=== PATIENT | male | born 1975 | race Caucasian/White ===

== ENCOUNTER → 2018-04-12 10:43 | Outpatient (CLI) | payer MEDICAID, SELFPAY ==
[2018-04-12 11:30] VITALS: PULSE 63; PULSE 70
== END ==
PROVIDERS: Family Provider Family Medicine; PCP Family Medicine; Visit Provider Family Medicine
DX: J30.1 Allergic rhinitis due to pollen (principal)
CPT/HCPCS: 94060; 94640; 94726; 94729

== ENCOUNTER → 2019-04-05 13:55 | Outpatient (CLI) | payer MEDICAID, SELFPAY | PROVIDERS: PCP Family Medicine; Visit Provider Internal Medicine Cardiovascular Disease | DX: I10 Essential (primary) hypertension (principal); R00.2 Palpitations; R06.02 Shortness of breath; R40.0 Somnolence; R53.83 Other fatigue | CPT/HCPCS: 95806 ==

== ENCOUNTER → 2019-07-23 16:00 | Outpatient (CLI) | payer MEDICAID, SELFPAY ==
[2019-07-23 17:35] LABS: Ferritin 41 ng/mL (8-388)
== END ==
PROVIDERS: Visit Provider Nurse Practitioner Family
DX: E83.10 Disorder of iron metabolism, unspecified (principal); G25.81 Restless legs syndrome; G47.33 Obstructive sleep apnea (adult) (pediatric)
CPT/HCPCS: 36415; 82728

== ENCOUNTER → 2019-07-30 12:02 | Outpatient (CLI) | payer MEDICAID, SELFPAY ==
--- NOTE | 2019-07-30 12:10 | XR_ITS ---
PROCEDURE: XR MULTIPLE SPINE 6+V CLINICAL INDICATION: BACK PAIN COMPARISON: No exams were available for comparison FINDINGS: Bone density, alignment and vertebral body heights are normal. There is mild loss of disc space height in the thoracic spine at T11-12. Posterior elements are intact and there are no paraspinal soft tissue densities. Lumbar spine shows normal bone density, alignment and vertebral body heights. Disc space heights are normal and there are small left lateral spur at L3-4. Posterior elements appear to be intact. IMPRESSION: No acute process. T11-T12 mild degenerative disc disease. L3-4 small left lateral spur. Dictated by: Dawson Iqbal 07/30/2019 12:33 Electronically signed by Dawson Iqbal in [place] 07/30/2019 12:33
== END ==
PROVIDERS: PCP Nurse Practitioner Family; Visit Provider Nurse Practitioner Family
DX: M54.5 Low back pain (principal); M54.6 Pain in thoracic spine
CPT/HCPCS: 72084

== ENCOUNTER → 2019-09-20 14:05 | Outpatient (CLI) | payer OTHER, SELFPAY ==
[2019-09-20 14:44] LABS: Basophils # 0.1 K/mm3 (0-0.2); Basophils % 0.9 % (0.1-2.0); Eosinophils # 0.6 K/mm3 (0.0-0.4); Eosinophils % 5.5 % (0.1-12.0); Hematocrit 44.7 % (42.0-52.0); Hemoglobin 14.8 g/dL (14.1-18.0); Lymphocytes # 3.4 K/mm3 (0.7-4.5); Lymphocytes % 32.3 % (10-50); Mean Corpuscular HGB Conc 33.1 g/dL (31.8-35.4); Mean Corpuscular Hemoglobin 30.7 pg (27.0-31.2); Mean Corpuscular Volume 92.6 fl (80-94); Monocytes # 0.9 K/mm3 (0.1-1.0); Monocytes % 8.4 % (1.7-9.3); Neutrophils # 5.5 K/mm3 (1.8-7.8); Neutrophils % 52.8 % (37.0-80.0); Platelet Count 344 K/mm3 (142-424); Red Blood Count 4.83 M/mm3 (4.60-6.20); Red Cell Distribution Width 14.2 % (11.5-17.5); White Blood Count 10.4 K/mm3 (4.8-10.8)
[2019-09-20 15:44] LABS: Alanine Aminotransferase 40 U/L (12-78); Albumin Level 3.9 gm/dL (3.4-5.0); Albumin/Globulin Ratio 1.1 (1.1-1.8); Alkaline Phosphatase 133 U/L (46-116); Anion Gap 8.5 mEq/L (5-15); Aspartate Amino Transferase 24 U/L (15-37); Bilirubin,Total 0.1 mg/dL (0.2-1.0); Blood Urea Nitrogen 3 mg/dL (7-18); Calcium 8.8 mg/dL (8.5-10.1); Carbon Dioxide 30 mmol/L (21.0-32.0); Chloride 103 mmol/L (98-107); Creatinine,Serum 0.83 mg/dL (0.70-1.30); Estimated Glomerular Filt Rate 101 ml/min (>60); GFR (African American) 122 ML/MIN (>60); Globulin 3.4 gm/dl (1.3-3.2); Glucose 70 mg/dL (74-106); Potassium 3.5 mmoL/L (3.5-5.1); Sodium 138 mmol/L (136-145); Total Protein,Serum 7.3 gm/dL (6.4-8.2)
[2019-09-24 06:36] LABS: Vitamin B12 634 pg/mL (232-1245); Vitamin D 25 Hydroxy 26.1 ng/mL (30.0-100.0)
[2019-09-27 21:13] LABS: Testosterone, Total, LC/MS 632.2 ng/dL (264.0-916.0); Testosterone,Free 11.6 pg/mL (6.8-21.5)
== END ==
PROVIDERS: Visit Provider Nurse Practitioner Family
DX: G47.33 Obstructive sleep apnea (adult) (pediatric) (principal); G47.00 Insomnia, unspecified; G47.19 Other hypersomnia; R53.83 Other fatigue; E55.9 Vitamin D deficiency, unspecified
CPT/HCPCS: 36415; 80053; 82607; 82652; 84402; 84403; 84443; 85025

== ENCOUNTER → 2019-11-09 07:46 | Outpatient (CLI) | payer OTHER, SELFPAY ==
--- NOTE | 2019-11-09 07:46 | CA_ITS ---
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 The EKG portion of the exercise stress echo is negative for ischemia, patient has adequate exercise capacity achieved 7 mets of workload on treadmill, the blood pressure response to exercise was adequate, test was stopped due to shortness of breath. 2. With exercise there is increase in contractility of all the segments of the myocardium with hyperdynamic left ventricular systolic response, no obvious regional wall motion abnormality with exercise to suggest underlying ischemic heart disease. 3. Normal exercise stress echo.
== END ==
PROVIDERS: PCP Family Medicine; Visit Provider Internal Medicine Cardiovascular Disease
DX: R06.02 Shortness of breath (principal); R07.9 Chest pain, unspecified; I10 Essential (primary) hypertension; G47.33 Obstructive sleep apnea (adult) (pediatric); Z99.89 Dependence on other enabling machines and devices
CPT/HCPCS: 93017; 93350

== ENCOUNTER 2020-02-20 10:50 | Emergency (ER) | payer OTHER, SELFPAY ==
[2020-02-20 10:52] VITALS: BP 144/82; PULSE 81; RESP 20; TEMP 36.8; O2SAT 98; BMI 25.8
--- NOTE | 2020-02-20 11:00 | XR_ITS ---
PROCEDURE: XR WRIST RT MIN 3V CLINICAL INDICATION: INJURY Posttraumatic pain COMPARISON: No exams were available for comparison FINDINGS: No fracture or dislocation. No lytic or blastic change. There is normal mineralization. The joint spaces are well-preserved. No significant degenerative/arthritic changes. No erosive changes evident. Other findings:None. IMPRESSION: No acute findings. Dictated by: eFlice Austin MD 02/20/2020 11:33 Electronically signed by Felice Austin MD in [facility] 02/20/2020 11:33
--- NOTE | 2020-02-20 11:38 | HMH.EDEXTP ---
ED Disposition Clinical Impression: Sprain and strain of wrist Disposition: Home, Self-Care Condition on Discharge: Good Instructions: Sprain Additional Instructions: Please follow-up with primary care physician if condition worsens. Referrals: Alfredo Bradshaw MD [Primary Care Provider] - - Critical Care Critical Care Time: No Attestation: On 02/20/20, the high probability of a clinically significant, sudden or life threatening deterioration of the following system(s) required my full and direct attention, intervention and personal management. The time I documented below is in addition to time spent performing reported procedures but includes the following listed in this critical care notation. Medical Decision Making - Medical Records Medical records reviewed: Yes: I reviewed the patient's medical records. - Richard Inquiry Pt receiving controlled substance: No Vital Signs: 02/20/20 10:52 Temperature 98.2 F Temperature Source Oral Pulse Rate [Right] 81 Respiratory Rate 20 Blood Pressure [Right Arm] 144/82 H Blood Pressure Mean [Right Arm] 102 02 Sat by Pulse Oximetry 98 - Lab Data Lab results reviewed: Yes: I reviewed the patient's lab results. - Radiology Data #1 Image(s): Wrist Preliminary Findings: Normal/NAD (This is a normal wrist x-ray), Abnormal Extremity Problem HPI - General Chief complaint: Extremity Injury, Upper Stated complaint: ao fell and hit R hand wrist Time Seen by Provider: 02/20/20 11:11 Mode of Arrival: Ambulatory Source of Information: Patient Limitations: No Limitations Description of Symptoms (Recalled from ER Triage Doc. by RN): RIGHT WRIST INJURY THAT HAPPENED LAST NIGHT. - History of Present Illness HPI Narrative: 44-year-old gentleman presents the ED after a fall. He fell yesterday was chopping some wood and landed on outstretched hand is complaining of pain in the right wrist right around the distal radius. Patient states the pain is 3 out of 10. Describes pain is sharp. He denies any exacerbating or alleviating factors. Patient denies any other trauma. - Related Data Home Medications Medication Instructions Recorded Confirmed albuterol sulfate 90 mcg/actuation 1 puff INHALATION Q6H PRN 03/15/19 11/09/19 aerosol inhaler clonazepam 0.5 mg tablet 0.5 mg PO BID PRN 03/15/19 11/09/19 fluticasone furoate 100 1 inh INHALATION DAILY 03/15/19 11/09/19 mcg-vilanterol 25 mcg/dose inhalation powder levocetirizine 5 mg tablet 5 mg PO DAILY 03/15/19 11/09/19 montelukast 10 mg tablet 10 mg PO QPM 03/15/19 11/09/19 paroxetine HCl 40 mg tablet 40 mg PO DAILY 03/15/19 11/09/19 quetiapine 25 mg tablet 25 mg PO DAILY tab 03/15/19 11/09/19 Previous Rx's Medication Instructions Recorded pramipexole 0.25 mg tablet 0.25 mg PO DAILY 90 Days #90 tab 07/23/19 metoprolol succinate 25 mg 25 mg PO AM #30 tab 11/09/19 tablet,extended release 24 hr metoprolol succinate 50 mg 50 mg PO QHS #30 tab 11/09/19 tablet,extended release 24 hr Allergies Allergy/AdvReac Type Severity Reaction Status Date / Time No Known Allergies Allergy Verified 11/09/19 11:45 [facility] History - Hepatitis A Screen Drug use history?: No High risk sexual behaviors?: No History of sexually transmitted infection?: No Currently employed?: No Childcare worker?: No Do you have indoor plumbing?: Yes Do you have electricity?: Yes Attestation statement:: This patient has been screened for Hepatitis A risk factors. I have reviewed the patient's past medical history: Yes Medical History: Reports:: Anxiety, Arrhythmia, Depression, Hypertension, Palpitations Other Medical History: Reports: Sinus Problems, Other Comment: GAL Other Surgeries: Yes: No Previous Surgery - Social History Smoking Status: Former smoker #Yrs smoked (if former smoker): 18 Alcohol Intake: never Alcohol Intake Frequency:: other Substance Use Type: denies use Occupational Status: employed -
[2020-02-20 11:49] VITALS: BP 136/74; PULSE 85; RESP 17; TEMP 36.8; O2SAT 99
== END 2020-02-20 11:51 | disposition home or self-care (01) ==
PROVIDERS: Emergency Provider Family Medicine; PCP Family Medicine
DX: S63.501A Unspecified sprain of right wrist, initial encounter (principal); W01.0XXA Fall on same level from slipping, tripping and stumbling without subsequent striking against object, initial encounter; Y92.89 Other specified places as the place of occurrence of the external cause; F41.8 Other specified anxiety disorders; I10 Essential (primary) hypertension; Z87.891 Personal history of nicotine dependence; Z79.899 Other long term (current) drug therapy
CPT/HCPCS: 29125; 73110; 99283

== ENCOUNTER → 2021-07-20 16:29 | Outpatient (CLI) | payer OTHER, SELFPAY ==
--- NOTE | 2021-07-20 16:35 | XR_ITS ---
PROCEDURE: XR SHOULDER LT MIN 2V CLINICAL INDICATION: CONTUSION OF LT SHOULER,INITIAL ENCOUNTER COMPARISON: No exams were available for comparison FINDINGS: Avulsion fractures present involving the greater tuberosity. Fracture fragment measures 1.7 cm only minimally distracted. The joint spaces are well-preserved. No significant degenerative/arthritic changes. No erosive changes evident. Other findings:None. IMPRESSION: Avulsion fracture of the greater tuberosity of the humerus with minimal distraction of 3 mm Dictated by: Felice Austin MD 07/20/2021 17:31 Felice Austin MD in [facility] 07/20/2021 17:31
[2021-07-20 18:19] LABS: Ferritin 151 ng/ml (17.9-464)
== END ==
PROVIDERS: PCP Family Medicine; Visit Provider Nurse Practitioner Family
DX: G25.81 Restless legs syndrome (principal); E83.10 Disorder of iron metabolism, unspecified
CPT/HCPCS: 36415; 73030; 82728

== ENCOUNTER 2024-11-14 13:10 | Outpatient (CLI) | payer OTHER, SELFPAY ==
--- NOTE | 2024-11-14 13:18 | XR_ITS ---
FINAL REPORT CLINICAL HISTORY: Shortness of breath COMPARISON: None FINDINGS: No acute pulmonary density is evident. There is no evidence of effusion or other pleural disease. The mediastinum has a normal appearance. The cardiac silhouette is unremarkable. IMPRESSION: Unremarkable chest exam. Reviewed, Interpreted and Dictated by Alfredo Zepeda MD Transcribed by Ivonne Nogueira Authenticated and [facility]
--- NOTE | 2024-11-14 13:47 | ECG_ITS ---
APPROVED REPORT Exam: Resting ECG HR:61 bpm ECG Measurements Heart Rate 61 AXES IN 145 P 95 QRSd 94 QRS 115 QT 418 T 86 QTc 420 Conclusion SINUS RHYTHM LEFT POSTERIOR FASCICULAR BLOCK [QRS AXIS > 109, INFERIOR Q] ABNORMAL ECG UNCONFIRMED REPORT Electronically signed by : Neo Newsome MD 11/16/2024 09:19:18
== END 2024-11-14 23:59 | disposition home or self-care (01) ==
LOC: RAD 13:14
PROVIDERS: PCP Family Medicine; Visit Provider Family Medicine
DX: R06.02 Shortness of breath (principal)
CPT/HCPCS: 71046; 93005

== ENCOUNTER 2025-02-16 17:14 | Emergency (ER) | payer OTHER, SELFPAY ==
--- NOTE | 2025-02-16 17:14 | ECG_ITS ---
APPROVED REPORT Exam: Resting ECG HR:94 bpm ECG Measurements Heart Rate 94 AXES WA 143 P 41 QRSd 96 QRS 67 QT 375 T 46 QTc 427 Conclusion SINUS RHYTHM NONSPECIFIC T-WAVE ABNORMALITY No STEMI Electronically signed by : LA MCKENZIE, 02/17/2025 06:46:02
--- NOTE | 2025-02-16 17:17 | CT_ITS ---
PROCEDURE INFORMATION: Exam: CT Head Without Contrast Exam date and time: 02/16/2025 5:20 PM Age: 49 years old Clinical indication: Stroke-like symptoms; Altered mental status/memory loss; RT lower extremity weakness; Additional info: Possible stroke, R flaccid paralysis, vision, sens TECHNIQUE: Imaging protocol: Computed tomography of the head without contrast. Radiation optimization: All CT scans at this facility use at least one of these dose optimization techniques: automated exposure control; mA and/or kV adjustment per patient size (includes targeted exams where dose is matched to clinical indication); or iterative reconstruction. Other technique: STROKE PROTOCOL was implemented. COMPARISON: No relevant prior studies available. FINDINGS: Brain: Normal. No hemorrhage. No space-occupying masses or areas of mass effect. Cortical sulci and white matter are unremarkable for age Cerebral ventricles: Unremarkable. No ventriculomegaly. Paranasal sinuses: Visualized sinuses are unremarkable. No fluid levels. Mastoid air cells: Visualized mastoid air cells are well aerated. Bones/joints: Unremarkable. Soft tissues: Unremarkable. IMPRESSION: Normal CT examination of the head. ASSESSMENT: ASPECTS ([place] Stroke Program Early CT Score) is 10.
--- NOTE | 2025-02-16 17:17 | CT_ITS ---
PROCEDURE INFORMATION: Exam: CTA Head With Contrast, Arteriography Exam date and time: 02/16/2025 5:23 PM Age: 49 years old Clinical indication: Stroke-like symptoms; Right upper extremity and right lower extremity numbness/paresthesia; Additional info: Possible stroke, R flaccid paralysis, vision, sens TECHNIQUE: Imaging protocol: Computed tomographic angiography of the head with contrast. Exam focused on the arteries. 3D rendering (Not supervised by radiologist): MIP and/or 3D reconstructed images were created by the technologist. Radiation optimization: All CT scans at this facility use at least one of these dose optimization techniques: automated exposure control; mA and/or kV adjustment per patient size (includes targeted exams where dose is matched to clinical indication); or iterative reconstruction. Contrast material: ISOVUE; Contrast volume: 80 ml; Contrast route: INTRAVENOUS (IV); COMPARISON: CT HEAD/BRAIN WO CON 02/16/2025 5:20 PM FINDINGS: ANTERIOR CIRCULATION: Right internal carotid artery: Intracranial segment is patent with no significant stenosis. No aneurysm. Right middle cerebral artery: No occlusion or significant stenosis. No aneurysm. Right anterior cerebral artery: No occlusion or significant stenosis. No aneurysm. Left internal carotid artery: Intracranial segment is patent with no significant stenosis. No aneurysm. Left middle cerebral artery: No occlusion or significant stenosis. No aneurysm. Left anterior cerebral artery: No occlusion or significant stenosis. No aneurysm. POSTERIOR CIRCULATION: Right vertebral artery: No occlusion or significant stenosis. No aneurysm. Left vertebral artery: No occlusion or significant stenosis. No aneurysm. Basilar artery: No occlusion or significant stenosis. No aneurysm. Right posterior cerebral artery: No occlusion or significant stenosis. No aneurysm. Left posterior cerebral artery: No occlusion or significant stenosis. No aneurysm. Brain: No intracranial hemorrhage, mass effect, or midline shift. Cerebral ventricles: No ventriculomegaly. Bones/joints: Unremarkable. No acute fracture. Soft tissues: Unremarkable. IMPRESSION: No large vessel occlusion or significant stenosis.
--- NOTE | 2025-02-16 17:17 | CT_ITS ---
PROCEDURE INFORMATION: Exam: CTA Neck With Contrast Exam date and time: 02/16/2025 5:23 PM Age: 49 years old Clinical indication: Stroke-like symptoms; Right upper extremity and right lower extremity numbness/paresthesia; Additional info: Possible stroke, R flaccid paralysis, vision, sens TECHNIQUE: Imaging protocol: Computed tomographic angiography of the neck with contrast. Exam focused on the cervical segments of the vasculature. 3D rendering (Not supervised by radiologist): MIP and/or 3D reconstructed images were created by the technologist. Radiation optimization: All CT scans at this facility use at least one of these dose optimization techniques: automated exposure control; mA and/or kV adjustment per patient size (includes targeted exams where dose is matched to clinical indication); or iterative reconstruction. Contrast material: ISOVUE; Contrast volume: 80 ml; Contrast route: INTRAVENOUS (IV); COMPARISON: CT HEAD/BRAIN WO CON 02/16/2025 5:20 PM FINDINGS: Right common carotid artery: No stenosis. No dissection or occlusion. Right internal carotid artery: No stenosis of the extracranial segment. No dissection or occlusion. Right external carotid artery: No occlusion or stenosis of the origin. Left common carotid artery: No stenosis. No dissection or occlusion. Left internal carotid artery: No stenosis of the extracranial segment. No dissection or occlusion. Left external carotid artery: No occlusion or stenosis of the origin. Right vertebral artery: No stenosis. No dissection or occlusion. Left vertebral artery: No stenosis. No dissection or occlusion. Soft tissues: Normal. No significant soft tissue swelling. Bones/joints: No acute fracture. Lungs: There are some patchy peribronchial ground-glass opacities in the upper lung zones partially visualized possibly infectious in nature. IMPRESSION: 1. No evidence of carotid stenosis or vertebrobasilar insufficiency. 2. Patchy peribronchial upper lobe ground-glass opacities, possibly infectious in nature. REFERENCES: NASCET CRITERIA. The degree of stenosis in the cervical segment of the internal carotid artery is based on NASCET criteria. Normal is no stenosis. Mild is less than 50% stenosis. Moderate is 50-69% stenosis. Severe is 70% to 99% stenosis. Total occlusion is no detectable patent lumen.
--- NOTE | 2025-02-16 17:19 | ED_ITS ---
Discharge Plan Disposition Patient Disposition: Xfer Short-Term Hosp Prescriptions Prescriptions: No Action clonazepam 0.5 mg tablet 0.5 mg PO BID PRN levocetirizine 5 mg tablet 5 mg PO DAILY montelukast [Singulair] 10 mg tablet 10 mg PO QPM Breo Ellipta 100-25 mcg/dose blister with device 1 inh INHALATION DAILY albuterol sulfate 90 mcg/actuation HFA aerosol inhaler 1 puff INHALATION Q6H PRN quetiapine 25 mg tablet 100 mg PO HS paroxetine HCl [Paxil] 40 mg tablet See Rx Instructions PO DAILY Rx Instructions: 20mg PO daily; pantoprazole 40 mg tablet,delayed release (DR/EC) PO folic acid 1 mg tablet 1 mg PO DAILY pramipexole 0.25 mg tablet 0.25 mg PO DAILY 30 Days Qty: 30 3RF Rx Instructions: Take 1/2 tab by mouth prior to bedtime for at least 1wk. May increase to 1 tab at bedtime if symptoms persist & no side effects or changes in behavior. metoprolol succinate 50 mg tablet extended release 24 hr 50 mg PO QHS Qty: 90 2RF metoprolol succinate 25 mg tablet extended release 24 hr 25 mg PO AM Qty: 90 2RF Referrals Follow up/Referrals: Alfredo Bradshaw MD [Primary Care Provider] - See instructions Provider,MD Bandar [Referring] - See instructions Clinical Impressions Clinical Impression: Acute CVA (cerebrovascular accident) Stand Alone Forms Stand Alone Forms: Transfer Record - ED Print Language Print Language: Brazilian Discharge ED Provider: Pedrito Singh General Adult HPI <Theodora Johnson (ED), [employer] - Last Filed: 02/16/25 18:12> General Chief complaint: Weakness Stated complaint: poss. CVA Time Seen by Provider: 02/16/25 17:18 History of Present Illness HPI narrative: This is a 49-year-old male who presents to the ED today with right sided facial numbness, lips and tongue are also numb that started all at 2 PM today. Says it lasted for 1 hour and went away then came back at 3:30 PM. He says this time it started in his face went down his right arm into his right leg. He says he came to the emergency room at this time. Patient is unable to lift right arm or right leg and he has no sensation in his right side of his body. 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 He is on no blood thinners. His glucose today is 101. When symptoms started patient was working on his house he is doing some renovations. Patient is not on blood thinners. Related Data Home Medications ?Medication ?Instructions ?Recorded ?Confirmed albuterol sulfate 90 mcg/actuation 1 puff inhalation Q6H PRN 03/15/19 07/20/21 aerosol inhaler clonazepam 0.5 mg tablet 0.5 mg PO BID PRN 03/15/19 07/20/21 fluticasone furoate 100 1 inh inhalation DAILY 03/15/19 07/20/21 mcg-vilanterol 25 mcg/dose inhalation powder (Breo Ellipta) levocetirizine 5 mg tablet 5 mg PO DAILY 03/15/19 07/20/21 montelukast 10 mg tablet 10 mg PO QPM 03/15/19 07/20/21 (Singulair) folic acid 1 mg tablet 1 mg PO DAILY 07/20/21 07/20/21 pantoprazole 40 mg tablet,delayed tab PO 07/20/21 07/20/21 release paroxetine HCl 40 mg tablet (Paxil) See Rx Instructions PO DAILY 07/20/21 07/20/21 quetiapine 25 mg tablet 100 mg PO HS 07/20/21 07/20/21 Previous Rx's ?Medication ?Instructions ?Recorded metoprolol succinate 25 mg 25 mg PO AM #90 tabs 03/13/20 tablet,extended release 24 hr metoprolol succinate 50 mg 50 mg PO QHS #90 tabs 03/13/20 tablet,extended release 24 hr pramipexole 0.25 mg tablet 0.25 mg PO DAILY 30 days #30 tabs 07/21/21 Allergies Allergy/AdvReac Type Severity Reaction Status Date / Time No Known Allergies Allergy Verified 07/20/21 14:18 [facility] <Theodora Johnson (ED), [employer] - Last Filed: 02/16/25 18:12> [facility] Disclaimer: The information contained in this section may have been updated after the patient was seen, as this information can be updated by other users. Medical History HTN (hypertension) Fatigue Daytime somnolence SOB (shortness of breath) Former smoker Social History Smoking Status: Current every day smoker alcohol intake: never substance use type: denies use current occupational status: employed Travel in the last 8 weeks: None household members: none housing: house Have you lived/traveled outside [place] in past 30 days?: No Contact w/someone who lives/traveled outside US past 30 days?: No Exposure to someone with infectious disease in past 14 days?: No Do you have a fever (greater than 100.4 F or 38 C)?: No Have you tested positive for COVID-19: No Exposed to someone with COVID-19 in past 14 days?: No Do you have a sore throat?: No Do you have a cough?: No Do you have any weakness?: Yes Do you have any diarrhea?: No Are you experiencing any unusual bleeding?: No Do you have any muscle aches/pain?: No Do you have any abdominal pain?: No Are you experiencing loss of taste or smell?: No Other Medical History Have you received the Flu Vaccine for this season: No Have you received the Pneumonia Vaccine: No <Theodora Johnson (ED), [employer] - Last Filed: 02/16/25 18:12> ROS Obtained: Yes Systems reviewed as appropriate & no additional complaints except as documented Constitutional Constitutional: Reports as per HPI Physical Exam <Theodora Johnson (ED), [employer] - Last Filed: 02/16/25 18:12> General General appearance: alert and in distress Head Head exam: atraumatic Eye Eye exam: Present PERRL and EOMI ENT ENT exam: Present normal exam, normal oropharynx and mucous membranes moist Neck Neck exam: Present normal inspection, full ROM and trachea midline Respiratory Respiratory exam: Present normal lung sounds bilaterally Cardiovascular Cardiovascular exam: Present regular rate, normal rhythm, normal heart sounds, +S1 and +S2 Extremities Exam Extremities exam: Present normal capillary refill Back Exam Back exam: Present normal inspection Neurological Exam Neurological exam: Present alert and motor sensory deficit Expanded Neurological Exam Patient oriented to: Present person, place and time Cranial nerves: Abnormal Right: facial sensation (V) Cerebellar function: Abnormal Right: finger to nose and heel to eldridge Motor strength - LUE: 3/5 Motor strength - RUE: 0/5 Motor strength - LLE: 3/5 Motor strength - RLE: 0/5 Sensory exam upper extremity: Abnormal Right: light touch, pin prick, temperature and 2 point discrimination Sensory exam lower extremity: Abnormal Right: light touch, pin prick, temperature and 2 point discrimination Coma scale eye opening: Spontaneous Coma scale motor response: Obeys commands Coma scale verbal response: Oriented Coma scale total: 15 Psychiatric Psychiatric exam: Present normal affect and normal mood Skin Skin exam: Present warm, dry and intact <Pedrito Singh MD - Last Filed: 02/16/25 18:11> Expanded Neurological Exam Coma scale total: 15 Medical Decision Making <Theodora Johnson (ED)REVA - Last Filed: 02/16/25 18:12> Medical Records Screening: Per USPSTF and CDC recommendations, given the prevalence of disease in our region, it is our hospital?s policy to screen for HIV and viral Hepatitis for all patients aged 18 and over and those with ongoing risk factors. Vital Signs: 02/16/25 17:26 02/16/25 17:44 02/16/25 18:07 Temperature 98.8 F 98.8 F Temperature Source Oral Pulse Rate 82 68 Pulse Rate [Left] 87 Respiratory Rate 20 18 16 Blood Pressure 146/82 H 127/90 Blood Pressure [Left Arm] 182/100 H Blood Pressure Mean [Left Arm] 127 Blood Pressure Source [Left Arm] Manual Cuff/ Auscultation Blood Pressure Position Sitting 02 Sat by Pulse Oximetry 93 L 96 94 L Oxygen Delivery Method Room Air Room Air Room Air Lab Data Lab Results 02/16/25 17:16: WBC 11.4 H, RBC 5.75, Hgb 17.5, Hct 49.3, MCV 85.7, MCH 30.4, M CHC 35.5 H, RDW 14.3, Plt Count 277, MPV 10.2, Neut % (Auto) 61.5, Lymph % (Auto) 27.9, Tucker % (Auto) 7.1, Eos % (Auto) 2.3, Baso % (Auto) 0.6, Neut # (Auto) 7.0, Lymph # (Auto) 3.2, Tucker # (Auto) 0.8, Eos # (Auto) 0.3, Baso # (Auto) 0.1, PT 10.3, INR 0.91, APTT 29.1, Sodium 141, Potassium 3.1 L, Chloride 107, Carbon Dioxide 23, Anion Gap 14.1, BUN 4 L, Creatinine 0.80, Estimated Creat Clear 116, Estimated GFR 103, Est GFR ( Amer) 125, Glucose 99, Calcium 8.9, Total Bilirubin 0.4, AST 35, ALT 36, Alkaline Phosphatase 131 H, Troponin I < 0.01, Total Protein 7.6, Albumin 4.3, Globulin 3.3 H, Albumin/Globulin Ratio 1.3, Triglycerides 453 H, Cholesterol 291 H, LDL Cholesterol Direct 143.49 H, HDL Cholesterol 30 L, Cholesterol/HDL Ratio 9.7 H, Plasma/Serum Alcohol < 10 02/16/25 17:16 02/16/25 17:16 Orders (Tests/Meds): ED MEDICATIONS Generic Name Dose Route Start Last Admin Trade Name Freq PRN Reason Stop Dose Admin Sodium Chloride 10 ml 02/16/25 17:17 02/16/25 18:05 Sodium Chloride 0.9% 10ml Flush Syringe IV 03/18/25 17:16 10 ml NEEDED PRN Administration Maintain IV Site Tenecteplase 18 mg 02/16/25 18:15 02/16/25 18:05 Tenecteplase 50mg Vial (Stroke) IV 02/16/25 18:16 18 mg ONCE ONE Administration Discontinued Medications Generic Name Dose Route Start Last Admin Trade Name Freq PRN Reason Stop Dose Admin Iopamidol 80 ml 02/16/25 17:24 Iopamidol-370 (76%);100ml Bottle IV 02/16/25 17:25 ONCE ONE Sodium Chloride 10 ml 02/16/25 17:24 02/16/25 17:27 Sodium Chloride 0.9% 10ml Syr (Rad Only) IV 02/16/25 17:25 10 ml ONCE ONE Administration Sodium Chloride 50 ml 02/16/25 17:24 02/16/25 17:27 0.9 % Sodium Chloride 50 Ml Vial IV 02/16/25 17:25 50 ml ONCE ONE Administration ORDERS Category Date Time Status CT angio head Stat Cat Scan 02/16/25 17:[address] angio neck Stat Cat Scan 02/16/25 17:[address] head/brain wo con Stat Cat Scan 02/16/25 17:17 Completed Activated Partial Thrombo Time Stat Lab 02/16/25 17:16 Completed Complete Blood Count Auto Diff Stat Lab 02/16/25 17:16 Completed Comprehensive Metabolic Panel Stat Lab 02/16/25 17:16 Completed Drug Screen,Urine Stat Lab 02/16/25 17:17 Ordered Ethyl Alcohol Stat Lab 02/16/25 17:16 Completed HIV Combo Stat Lab 02/16/25 17:16 Received Hepatitis C Ab Qual. W/ RFX Stat Lab 02/16/25 17:16 Received Lipid Panel Stat Lab 02/16/25 17:16 Completed Prothrombin Time INR Stat Lab 02/16/25 17:16 Completed Troponin I Q3H Lab 02/16/25 20:30 Ordered Troponin I Q3H Lab 02/16/25 23:30 Ordered Troponin I Stat Lab 02/16/25 17:16 Completed Urinalysis and Microscopic Stat Lab 02/16/25 17:17 Ordered ECG Request Stat Y 02/16/25 17:17 Ordered Medical Decision Narrative: Insert review patient is a 49-year-old male presenting to the emergency department for evaluation of right-sided facial tingling including his lips and tongue that lasted approximately an hour. This went away and came back at approximately 3:30 PM. He says this time it included face, arm and leg on his right side. He arrived to the ED with a glucose of 101 and a blood pressure of 168/110. Patient is hemodynamically stable however right-side is weak, numb on initial exam. His NIH is initially 20.. Differential diagnosis includes stroke, hypoglycemia, CAD among others. Workup will be conducted with hematologic labs, CT of head and neck, CT head, (stroke workup, stroke alert was called upon patient's arrival to the ED. Initial inventions include stroke alert was called, stroke workup was was placed by Dr. Singh, and patient was taken to the scanner. Rest of workup was taken by Dr. Singh. <Pedrito Singh MD - Last Filed: 02/16/25 18:11> Richard Inquiry Pt receiving controlled substance: No Vital Signs: 02/16/25 17:26 02/16/25 17:44 02/16/25 18:07 Temperature 98.8 F 98.8 F Temperature Source Oral Pulse Rate 82 68 Pulse Rate [Left] 87 Respiratory Rate 20 18 16 Blood Pressure 146/82 H 127/90 Blood Pressure [Left Arm] 182/100 H Blood Pressure Mean [Left Arm] 127 Blood Pressure Source [Left Arm] Manual Cuff/ Auscultation Blood Pressure Position Sitting 02 Sat by Pulse Oximetry 93 L 96 94 L Oxygen Delivery Method Room Air Room Air Room Air Lab Data Lab Results 02/16/25 17:16: WBC 11.4 H, RBC 5.75, Hgb 17.5, Hct 49.3, MCV 85.7, MCH 30.4, M CHC 35.5 H, RDW 14.3, Plt Count 277, MPV 10.2, Neut % (Auto) 61.5, Lymph % (Auto) 27.9, Tucker % (Auto) 7.1, Eos % (Auto) 2.3, Baso % (Auto) 0.6, Neut # (Auto) 7.0, Lymph # (Auto) 3.2, Tucker # (Auto) 0.8, Eos # (Auto) 0.3, Baso # (Auto) 0.1, PT 10.3, INR 0.91, APTT 29.1, Sodium 141, Potassium 3.1 L, Chloride 107, Carbon Dioxide 23, Anion Gap 14.1, BUN 4 L, Creatinine 0.80, Estimated Creat Clear 116, Estimated GFR 103, Est GFR ( Amer) 125, Glucose 99, Calcium 8.9, Total Bilirubin 0.4, AST 35, ALT 36, Alkaline Phosphatase 131 H, Troponin I < 0.01, Total Protein 7.6, Albumin 4.3, Globulin 3.3 H, Albumin/Globulin Ratio 1.3, Triglycerides 453 H, Cholesterol 291 H, LDL Cholesterol Direct 143.49 H, HDL Cholesterol 30 L, Cholesterol/HDL Ratio 9.7 H, Plasma/Serum Alcohol < 10 Orders (Tests/Meds): ED MEDICATIONS Generic Name Dose Route Start Last Admin Trade Name Freq PRN Reason Stop Dose Admin Sodium Chloride 10 ml 02/16/25 17:17 02/16/25 18:05 Sodium Chloride 0.9% 10ml Flush Syringe IV 03/18/25 17:16 10 ml NEEDED PRN Administration Maintain IV Site Tenecteplase 18 mg 02/16/25 18:15 02/16/25 18:05 Tenecteplase 50mg Vial (Stroke) IV 02/16/25 18:16 18 mg ONCE ONE Administration Discontinued Medications Generic Name Dose Route Start Last Admin Trade Name Freq PRN Reason Stop Dose Admin Iopamidol 80 ml 02/16/25 17:24 Iopamidol-370 (76%);100ml Bottle IV 02/16/25 17:25 ONCE ONE Sodium Chloride 10 ml 02/16/25 17:24 02/16/25 17:27 Sodium Chloride 0.9% 10ml Syr (Rad Only) IV 02/16/25 17:25 10 ml ONCE ONE Administration Sodium Chloride 50 ml 02/16/25 17:24 02/16/25 17:27 0.9 % Sodium Chloride 50 Ml Vial IV 02/16/25 17:25 50 ml ONCE ONE Administration ORDERS Category Date Time Status CT angio head Stat Cat Scan 02/16/25 17:[address] angio neck Stat Cat Scan 02/16/25 17:[address] head/brain wo con Stat Cat Scan 02/16/25 17:17 Completed Activated Partial Thrombo Time Stat Lab 02/16/25 17:16 Completed Complete Blood Count Auto Diff Stat Lab 02/16/25 17:16 Completed Comprehensive Metabolic Panel Stat Lab 02/16/25 17:16 Completed Drug Screen,Urine Stat Lab 02/16/25 17:17 Ordered Ethyl Alcohol Stat Lab 02/16/25 17:16 Completed HIV Combo Stat Lab 02/16/25 17:16 Received Hepatitis C Ab Qual. W/ RFX Stat Lab 02/16/25 17:16 Received Lipid Panel Stat Lab 02/16/25 17:16 Completed Prothrombin Time INR Stat Lab 02/16/25 17:16 Completed Troponin I Q3H Lab 02/16/25 20:30 Ordered Troponin I Q3H Lab 02/16/25 23:30 Ordered Troponin I Stat Lab 02/16/25 17:16 Completed Urinalysis and Microscopic Stat Lab 02/16/25 17:17 Ordered ECG Request Stat Y 02/16/25 17:17 Ordered ECG Data Tracing #1: Independently interpreted by me rate is 94, rhythm is regular, axis is normal, no ST elevation in anatomical contiguous leads, QTc 427 Medical Decision Narrative: Insert review patient is a 49-year-old male presenting to the emergency department for evaluation of right-sided facial tingling including his lips and tongue that lasted approximately an hour. This went away and came back at approximately 3:30 PM. He says this time it included face, arm and leg on his right side. He arrived to the ED with a glucose of 101 and a blood pressure of 168/110. Pedrito Singh: In summary patient is a 49-year-old male with past medical history described above who presents emergency department for evaluation of strokelike symptoms. Last known normal 1400. Patient is not on anticoagulants. He is within the stroke window and will undergo rapid stroke protocol. Initial NIH is 20, right-sided paralysis, a sensate right side, dysarthria. Fingerstick blood glucose nonactionable. Noncontrasted CT scan informally visualized by me, no large acute intracranial hemorrhage. I had a interactive discussion with radiologist on-call, no acute intracranial abnormality noncontrasted CT, no large vessel occlusion or critical stenosis CTA head or neck. Blood pressure is 146/82, patient has no contraindications to TNK per the TNK exclusion checklist which was confirmed by nursing. I discussed the risk and benefit of TNK with the patient and he wishes to proceed. Discussion with Dr. Rogers in the [employer] application we will proceed with thrombolytics at this time. TNK administered 1805. Patient was transferred in stable condition [facility] via EMS at this time. Critical Care <Pedrito Singh MD - Last Filed: 02/16/25 18:11> Critical Care Time Critical Care Time: Yes Attestation: On 02/16/25, the high probability of a clinically significant, sudden or life threatening deterioration of the following system(s) required my full and direct attention, intervention and personal management. The time I documented below is in addition to time spent performing reported procedures but includes the following listed in this critical care notation. Total Time Total Critical Care Time: 40
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
[2025-02-16 17:26] VITALS: BP 182/100; PULSE 87; RESP 20; TEMP 37.1; O2SAT 93; BMI 24.3
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
[2025-02-16] MEDS: 0.9 % SODIUM CHLORIDE 50 ML VIAL IV (17:27)
[2025-02-16] MEDS: SODIUM CHLORIDE 0.9% 10ML SYR (RAD ONLY) 10 ML IV (17:27)
--- NOTE | 2025-02-16 17:28 | PC.NURSE ---
pt back in room from ct scan
[2025-02-16 17:30] LABS: Albumin Level 4.3 g/dl (3.5-5.0); Chloride 107 mmol/L (98-107); Potassium 3.1 mmoL/L (3.5-5.1); Sodium 141 mmol/L (136-145)
--- NOTE | 2025-02-16 17:31 | PC.NURSE ---
Manual BP 156/92 when he returned from ct scan. Dr Singh notified of this.
[2025-02-16 17:32] LABS: Alanine Aminotransferase 36 U/L (12-78); Aspartate Amino Transferase 35 U/L (17-59); Blood Urea Nitrogen 4 mg/dl (9-20); Creatinine Clearance Estimated 116 mL/min (50-200); Estimated Glomerular Filt Rate 103 ml/min (>60); GFR (African American) 125 ML/MIN (>60)
[2025-02-16 17:33] LABS: Albumin/Globulin Ratio 1.3 (1.1-1.8); Alkaline Phosphatase 131 U/L (38-126); Anion Gap 14.1 mEq/L (5-15); Bilirubin,Total 0.4 mg/dl (0.2-1.3); Calcium 8.9 mg/dl (8.4-10.2); Carbon Dioxide 23 mmol/L (22.0-30.0); Chol/HDL Ratio 9.7 (1-3.5); Cholesterol 291 mg/dl (140-200); Globulin 3.3 g/dL (1.3-3.2); Glucose 99 mg/dl (74-100); HDL Cholesterol 30 mg/dl (40-60); Total Protein,Serum 7.6 g/dl (6.3-8.2)
[2025-02-16 17:36] LABS: Triglycerides 453 mg/dl (30-150)
[2025-02-16 17:44] VITALS: BP 146/82; PULSE 82; RESP 18; TEMP 37.1; O2SAT 96
[2025-02-16 17:44] LABS: Direct LDL Cholesterol 143.49 mg/dL (100-129)
[2025-02-16 17:46] LABS: Basophils # 0.1 K/mm3 (0-0.2); Basophils % 0.6 % (0.1-2.0); Eosinophils # 0.3 Kmm3 (0.0-0.4); Eosinophils % 2.3 % (0.1-12.0); Hematocrit 49.3 % (42.0-52.0); Hemoglobin 17.5 g/dL (14.1-18.0); Lymphocytes # 3.2 K/mm3 (0.7-4.5); Lymphocytes % 27.9 % (10-50); Mean Corpuscular HGB Conc 35.5 g/dL (31.8-35.4); Mean Corpuscular Hemoglobin 30.4 pg (27.0-31.2); Mean Corpuscular Volume 85.7 fl (80-94); Mean Platelet Volume 10.2 fl (7.4-10.4); Monocytes # 0.8 K/mm3 (0.1-1.0); Monocytes % 7.1 % (1.7-9.3); Neutrophils % 61.5 % (37.0-80.0); Nucleated Red Blood Cells # 0 10^3/uL; Nucleated Red Blood Cells % 0 %; Platelet Count 277 K/mm3 (142-424); Red Blood Count 5.75 M/mm3 (4.60-6.20); Red Cell Distribution Width 14.3 % (11.5-17.5); Red Cell Distribution Width-SD 44.4 fL; White Blood Count 11.4 K/mm3 (4.8-10.8)
[2025-02-16 17:52] LABS: Activated Partial Thrombo Time 29.1 seconds (22.8-30.6); INR 0.91 (0.9-1.1); Prothrombin Time 10.3 seconds (10.1-12.5)
[2025-02-16 17:57] LABS: Troponin I < 0.01 ng/ml (0.00-0.034)
--- NOTE | 2025-02-16 17:58 | PC.NURSE ---
TNK exclusion list reviewed with patient. Per patient's report, chart review, and laboratory review the patient does not meet any exclusion criteria. Provider aware.
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
[2025-02-16 18:05] LABS: Ethyl Alcohol < 10 mg/dl (0-10)
[2025-02-16] MEDS: TENECTEPLASE 50MG VIAL (STROKE) 18 MG IV (18:05)
[2025-02-16] MEDS: SODIUM CHLORIDE 0.9% 10ML FLUSH SYRINGE 10 ML IV (18:05)
[2025-02-16 18:07] VITALS: BP 127/90; PULSE 68; RESP 16; O2SAT 94
--- NOTE | 2025-02-16 18:08 | PC.NURSE ---
TNK administered as documented. Derek William RN at bedside as well. Provider in room. Patient aware of transfer at this time.
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
--- NOTE | 2025-02-16 18:17 | PC.NURSE ---
report called to Manisha @ [facility]
--- NOTE | 2025-02-16 18:26 | PC.NURSE ---
post [facility] is 1.
[2025-02-16 18:43] LABS: Microscopic, Urine URINE MICROSCOPIC (MICROSCOPIC)
[2025-02-16 18:44] LABS: Appearance,Urine CLEAR (Clear); Bilirubin,Urine Negative (Negative); Blood, Urine Negative (Negative); Color,Urine YELLOW (Yellow); Glucose,Urine (UA) Negative (Negative); Ketones,Urine Negative (Negative); Leukocyte Esterase,Urine Negative (Negative); Nitrate,Urine Negative (Negative); PH,Urine 6.5 (5.0-8.5); Protein,Urine Negative (Negative); Urobilinogen,Urine 0.2 EU/dl (0.2)
[2025-02-16 18:46] LABS: HIV Combo NEGATIVE (Negative)
[2025-02-16 18:48] VITALS: BP 135/92; PULSE 65; RESP 18; TEMP 37.1; O2SAT 95
[2025-02-16 18:54] LABS: Hepatitis C Ab Qual. W/ RFX NEGATIVE (Negative)
[2025-02-16 18:55] LABS: Amphetamine/Metha Screen,Urine Negative ng/ml (<1000); Barbiturates Screen,Urine Negative ng/ml (<200)
[2025-02-16 18:56] LABS: Benzodiazepines Screen,Urine Negative ng/ml (<200)
[2025-02-16 18:57] LABS: Cannabinoid Screen,Urine Negative ng/ml (<50); Cocaine Screen,Urine Negative ng/ml (<300)
[2025-02-16 18:58] LABS: Methadone Screen,Urine Negative ng/ml (<300)
[2025-02-16 18:59] LABS: Opiate Screen,Urine Negative ng/ml (<300); Phencyclidine Screen,Urine Negative ng/ml (<25)
== END 2025-02-16 18:45 | disposition short-term general hospital (02) ==
PROVIDERS: Emergency Provider Emergency Medicine; PCP Family Medicine
DX: I63.9 Cerebral infarction, unspecified (principal); R29.720 NIHSS score 20; E87.6 Hypokalemia; I10 Essential (primary) hypertension; Z11.59 Encounter for screening for other viral diseases; Z11.4 Encounter for screening for human immunodeficiency virus [HIV]
CPT/HCPCS: 70450; 70496; 70498; 80053; 80061; 80307; 80320; 81001; 84484; 85025; 85610; 85730; 86803; 87389; 93005; 96374; 99291; J3101